=== PATIENT | male | born 1960 | race Native Hawaiian/Other Pacific Islander ===

== ENCOUNTER 2017-02-26 11:23 | Outpatient (CLI) | payer OTHER | END 2017-02-26 19:27 | disposition home or self-care (01) | LOC: US 11:23 | DX: R79.89 Other specified abnormal findings of blood chemistry (principal) ==

== ENCOUNTER 2021-04-04 11:09 | Outpatient (CLI) | payer BC, OTHER | END 2021-04-04 21:15 | disposition home or self-care (01) | LOC: LAB 11:09 | PROVIDERS: ATTEND Nurse Practitioner Family | DX: U07.1 COVID-19 (principal); R43.2 Parageusia; R19.7 Diarrhea, unspecified; Z11.52 Encounter for screening for COVID-19 | CPT/HCPCS: 87635; G2023; U0003 ==